=== PATIENT | female | born 2000 | race Native Hawaiian/Other Pacific Islander ===

== ENCOUNTER 2022-02-19 03:42 | Emergency (ER) | payer OTHER ==
[~2022-02-19] VITALS: Ht 152.4 cm; Wt 63.5 kg
[2022-02-19 03:50] VITALS: BP 147/80; TEMP 97.9
== END 2022-02-19 05:20 | disposition home or self-care (01) ==
LOC: ED 03:42
DX: M54.59 Other low back pain (principal)
CPT/HCPCS: 81000; 81025; 96372; 99283; J1885; J2360